=== PATIENT | female | born 1960 | race Caucasian/White ===

== ENCOUNTER 2016-11-29 11:46 | Emergency (ER) | payer SELFPAY ==
[~2016-11-29] VITALS: Ht 165.1 cm; Wt 49.9 kg
--- NOTE | 2016-11-29 12:19 | PHYS DOC ---
Adult General Chief Complaint Chief Complaint: COUGH HPI HPI Patient is a 56 year old female presenting to the emergency department for evaluation of chest pain that has been going on for the past 3 days. She says that she woke up with the pain 3 days ago and that it has persisted. She says she feels a constant dull ache but the pain gets worse with exertion and she says she feels right-sided pressure and then whenever she coughs or takes a deep breath she feels sharp shooting pain coming from the back to the chest. She denies any nausea vomiting diaphoresis or shortness of breath. She says that she has a nonproductive cough. She reports having a stress test more than a year ago at [facility] that she thinks was negative but she denies ever having a heart catheterization or stents placed. She is in no obvious distress with normal vital signs. She has hypertension and she smokes cigarettes and says that she has a family history of heart disease. Review of Systems Review of Systems Constitutional: Denies fever or chills [] Eyes: Denies change in visual acuity, redness, or eye pain [] HENT: Denies nasal congestion or sore throat [] Respiratory: + cough. No shortness of breath [] Cardiovascular: + CP GI: Denies abdominal pain, nausea, vomiting, bloody stools or diarrhea [] : Denies dysuria or hematuria [] Musculoskeletal: Denies back pain or joint pain [] Integument: Denies rash or skin lesions [] Neurologic: Denies headache, focal weakness or sensory changes [] Current Medications Current Medications Current Medications Medications (Trade) Dose Ordered Sig/[facility] Start Time Stop Time Status Last Admin Dose Admin Albuterol/ Ipratropium (Duoneb) 3 ml 1X ONCE 11/29/16 12:45 11/29/16 12:46 DC 11/29/16 13:21 3 ML Aspirin (Ecotrin) 325 mg 1X ONCE 11/29/16 12:45 11/29/16 12:46 DC 11/29/16 13:40 325 MG Dexamethasone Sodium Phosphate (Decadron) 8 mg 1X ONCE 11/29/16 12:45 11/29/16 12:46 DC 11/29/16 13:38 8 MG Fentanyl Citrate (Fentanyl 2ml Vial) 75 mcg 1X ONCE 11/29/16 12:45 11/29/16 12:46 DC 11/29/16 13:40 75 MCG Allergies Allergies Allergies Coded Allergies Type Severity Reaction Last Updated Verified Sulfa (Sulfonamide Antibiotics) Allergy Intermediate Hives 11/29/16 Yes lisinopril Allergy Intermediate Swelling 11/29/16 Yes Physical Exam Physical Exam Constitutional: Well developed, well nourished, no acute distress, non-toxic appearance. [] HENT: Normocephalic, atraumatic, bilateral external ears normal, oropharynx moist, no oral exudates, nose normal. [] Eyes: PERRLA, EOMI, conjunctiva normal, no discharge. [] Neck: Normal range of motion, no tenderness, supple, no stridor. [] Cardiovascular:Heart rate regular rhythm, no murmur [] Lungs & Thorax: Bilateral breath sounds diminished with expiratory wheezing noted Abdomen: Bowel sounds normal, soft, no tenderness, no masses, no pulsatile masses. [] Skin: Warm, dry, no erythema, no rash. [] Back: No tenderness, no CVA tenderness. [] Extremities: No tenderness, no cyanosis, no clubbing, ROM intact, no edema. [] Neurologic: Alert and oriented X 3, normal motor function, normal sensory function, no focal deficits noted. [] Current Patient Data Vital Signs Vital Signs Date Time Temp Pulse Resp B/P Pulse Ox O2 Delivery O2 Flow Rate FiO2 11/29/16 14:05 Room Air 11/29/16 14:01 82 15 170/89 90 11/29/16 12:27 97.6 97.6 Lab Values Laboratory Tests Test 11/29/16 12:42 11/29/16 13:15 11/29/16 13:30 Urine Opiates Screen Neg (NEG) Urine Methadone Screen Neg (NEG) Urine Barbiturates Neg (NEG) Urine Phencyclidine Screen Neg (NEG) Urine Amphetamine/Methamphetamine Pos (NEG) Urine Benzodiazepines Screen Pos (NEG) Urine Cocaine Screen Neg (NEG) Urine Cannabinoids Screen Pos (NEG) Urine Ethyl Alcohol Neg (NEG) White Blood Count 10.8x10^3/uL (4.0-11.0) Red Blood Count 4.91x10^6/uL (3.50-5.40) Hemoglobin 15.9g/dL (12.0-15.5) H Hematocrit 46.2% (36.0-47.0) Mean Corpuscular Volume 94fL (79-100) Mean Corpuscular Hemoglobin 32pg (25-35) Mean Corpuscular Hemoglobin Concent 34g/dL (31-37) Red Cell Distribution Width 13.1% (11.5-14.5) Platelet Count 332x10^3/uL (140-400) Neutrophils (%) (Auto) 60% (31-73) Lymphocytes (%) (Auto) 28% (24-48) Monocytes (%) (Auto) 8% (0-9) Eosinophils (%) (Auto) 3% (0-3) Basophils (%) (Auto) 1% (0-3) Neutrophils # (Auto) 6.5x10^3uL (1.8-7.7) Lymphocytes # (Auto) 3.1x10^3/uL (1.0-4.8) Monocytes # (Auto) 0.9x10^3/uL (0.0-1.1) Eosinophils # (Auto) 0.3x10^3/uL (0.0-0.7) Basophils # (Auto) 0.1x10^3/uL (0.0-0.2) Sodium Level 137mmol/L (136-145) Potassium Level 4.0mmol/L (3.5-5.1) Chloride Level 105mmol/L (98-107) Carbon Dioxide Level 25mmol/L (21-32) Anion Gap 7 (6-14) Blood Urea Nitrogen 16mg/dL (7-20) Creatinine 1.1mg/dL (0.6-1.0) H Estimated GFR (Cockcroft-Gault) 51.2 BUN/Creatinine Ratio 15 (6-20) Glucose Level 107mg/dL (70-99) H Calcium Level 9.4mg/dL (8.5-10.1) Total Bilirubin 0.4mg/dL (0.2-1.0) Aspartate Amino Transferase (AST) 38U/L (15-37) H Alanine Aminotransferase (ALT) 56U/L (14-59) Alkaline Phosphatase 123U/L (46-116) H Troponin I Quantitative < 0.017ng/mL (0.000-0.055) ZL-Aop-D-Type Natriuretic Peptide 92pg/mL (0-124) Total Protein 7.4g/dL (6.4-8.2) Albumin 3.4g/dL (3.4-5.0) Albumin/Globulin Ratio 0.9 (1.0-1.7) L Lipase 458U/L (73-393) H Ethyl Alcohol Level < 10mg/dL (0-10) Laboratory Tests 11/29/16 13:15 Laboratory Tests 11/29/16 13:30 EKG EKG Normal sinus rhythm at 82 bpm with normal axis and no ST elevation or depression and normal T waves Radiology/Procedures Radiology/Procedures 2 view CXR: Clinical indications: Cough. Comparison: July 01, 2012. Findings: Hyperinflation is seen consistent with COPD. No acute lung infiltrate or pleural effusion or pulmonary edema or lung mass or pneumothorax is seen. The heart size, pulmonary vasculature, mediastinum and both radha are unremarkable. Old healed right rib cage fractures are seen. Impression: No acute radiographic abnormality is seen. COPD. DICTATED and SIGNED BY: MAURO RENTERIA MD DATE: 11/29/16 1313 Course & Med Decision Making Course & Med Decision Making Patient with some typical features for ACS and some atypical but given her age and risk factors she will get further workup. Patient's workup completely negative. I recommended patient be admitted to the hospital and she does have multiple risk factors with no recent cardiac risk stratification. Patient says that she is pain-free and her breathing is much better and she wants to go home. I told her the limitations of the studies I can do in the emergency department and she verbalizes understanding and accepted the risks of and disability by leaving against my advice. Patient was told to follow up with a tint layer as soon as possible not exert herself take an aspirin daily and come back to the emergency department sooner with any worsening pain short of breath or other general concerns. Patient verbalized understanding of the above instructions. Dragon Disclaimer Dragon Disclaimer This electronic medical record was generated, in whole or in part, using a voice recognition dictation system. Departure Departure Impression: Primary Impression: Chest pain Additional Impressions: Drug abuse COPD without exacerbation Disposition: HOME, SELF-CARE Condition: GOOD Referrals: SEJAL CARABALLO MD Patient Instructions: Chest Pain (Nonspecific) Additional Instructions: TAKE A 325MG DOSE ASPIRIN DAILY. DO NOT EXERT YOURSELF UNTIL CLEARED BY THE TAX MANAGER. TAKE 400MG OF IBUPROFEN EVERY 6 HOURS AND THE NORCO FOR BREAKTHROUGH PAIN. THANK YOU! Scripts Ondansetron (Zofran Odt)4 Mg Tab.rapdis1 Tab SL Q8HRS #10 TAB Prov:KINGSLEY QUINTERO DO 11/29/16 Hydrocodone/Apap 5-325 ([place] 5-325 Tablet)1 Each Tablet1 Tab PO PRN Q6HRS PRN PAIN #20 TAB Prov:KINGSLEY QUINTERO DO 11/29/16 Problem Qualifiers Primary Impression: Chest pain Chest pain type: unspecified Qualified Code: R07.9 - Chest pain, unspecified KINGSLEY QUINTERO DO Nov 29, 2016 12:19
[2016-11-29] MEDS ORDERED: fentaNYL PF VIAL 100 MCG/2 ML VIAL IV ONE (12:45)
[2016-11-29] MEDS ORDERED: DEXAMETHASONE SOD PHOS 20 MG/5 ML VIAL. IV ONE (12:45)
[2016-11-29] MEDS ORDERED: IPRATRPIUM/ALBUTEROL 0.5/2.5MG 3 ML NEBU. NEB ONE (12:45)
[2016-11-29] MEDS ORDERED: ASPIRIN ENTERIC COATED 325 MG TABLET.DR. PO ONE (12:45)
--- NOTE | 2016-11-29 12:49 | EKG ---
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
[2016-11-29 13:08] LABS: BARBITURATES NEG (NEG); BENZODIAZEPINES POS (NEG); CANNABINOIDS POS (NEG); COCAINE NEG (NEG); ETHANOL, URINE NEG (NEG); METHADONE NEG (NEG); OPIATES NEG (NEG); PHENCYCLIDINE NEG (NEG)
--- NOTE | 2016-11-29 13:19 | RAD ---
2 view CXR: Clinical indications: Cough. Comparison: July 01, 2012. Findings: Hyperinflation is seen consistent with COPD. No acute lung infiltrate or pleural effusion or pulmonary edema or lung mass or pneumothorax is seen. The heart size, pulmonary vasculature, mediastinum and both radha are unremarkable. Old healed right rib cage fractures are seen. Impression: No acute radiographic abnormality is seen. COPD.
[2016-11-29 13:30] LABS: BASO # 0.1 x10^3/uL (0.0-0.2); BASO % 1 % (0-3); EOS % 3 % (0-3); HEMATOCRIT 46.2 % (36.0-47.0); HEMOGLOBIN 15.9 g/dL (12.0-15.5); LYMPH # 3.1 x10^3/uL (1.0-4.8); LYMPH % 28 % (24-48); MEAN CORPUSCULAR HEMOGLOBIN 32 pg (25-35); MEAN CORPUSCULAR HGB CONC 34 g/dL (31-37); MEAN CORPUSCULAR VOLUME 94 fL (79-100); MONO % 8 % (0-9); NEUT % 60 % (31-73); PLATELET COUNT 332 x10^3/uL (140-400); RED BLOOD COUNT 4.91 x10^6/uL (3.50-5.40); RED CELL DISTRIBUTION WIDTH 13.1 % (11.5-14.5); WHITE BLOOD COUNT 10.8 x10^3/uL (4.0-11.0)
[2016-11-29 13:59] LABS: CALCIUM 9.4 mg/dL (8.5-10.1); CREATININE 1.1 mg/dL (0.6-1.0); GFR 51.2
[2016-11-29 14:00] LABS: ALBUMIN 3.4 g/dL (3.4-5.0); ALBUMIN/GLOBULIN RATIO 0.9 (1.0-1.7); TOTAL BILIRUBIN 0.4 mg/dL (0.2-1.0); TOTAL PROTEIN 7.4 g/dL (6.4-8.2)
[2016-11-29 14:01] VITALS: BP 170/89
[2016-11-29] MEDS ORDERED: HYDR-971 PO (14:16)
[2016-11-29] MEDS ORDERED: ONDA4TAB10 SL (14:16)
== END 2016-11-29 14:28 | disposition home or self-care (01) ==
LOC: ER 11:46
DX: J44.9 Chronic obstructive pulmonary disease, unspecified (principal); F19.10 Other psychoactive substance abuse, uncomplicated; F17.210 Nicotine dependence, cigarettes, uncomplicated; I10 Essential (primary) hypertension; Z88.8 Allergy status to other drugs, medicaments and biological substances; Z88.2 Allergy status to sulfonamides
CPT/HCPCS: 36415; 71020; 80053; 80305; 80320; 83690; 83880; 84484; 85027; 93005; 94250; 94640; 96374; 96375; 99285; J1100; J3010; J7620; G0480; G0481

== ENCOUNTER 2016-11-30 14:29 | Emergency (ER) | payer SELFPAY ==
[~2016-11-30 14:29] MED LIST: HYDR-971 PO; ONDA4TAB10 SL
[2016-11-30] MEDS ORDERED: ASPIRIN 325 MG TABLET PO ONE (15:15)
[2016-11-30] MEDS ORDERED: KETOROLAC TROMETHAMINE 30 MG/ML INJ. IV ONE (15:15)
--- NOTE | 2016-11-30 15:36 | PHYS DOC ---
Past Medical History Past Medical History: COPD, Hypertension, UTI Additional Past Medical Histor: KIDNEY DYSFUNCTION ("RIGHT KIDNEY DOES NOT WORK ") Past Surgical History: Cholecystectomy, Alcohol Use: Rarely Drug Use: Marijuana Adult General Chief Complaint Chief Complaint: CHEST PAIN HPI HPI Patient is a 56 year old female who presents for repeat evaluation for right sided shoulder and upper chest pain that is present for the past 4 days at the request of her PCP. States the only time her pain comes with his when she was asleep. She wakes and has no pain, but pain starts as soon as she begins her day and lasts the entirety of the day. Her symptoms are unchanging throughout the day. Pain is achy, moderate, improves with hydrocodone that was prescribed yesterday. She denies cough, dyspnea, diaphoresis, palpitations, exertional symptoms, orthopnea, hemoptysis, leg pain or swelling, rash, fever or chills, nausea or vomiting, abdominal pain, diarrhea, pain with eating. Review of Systems Review of Systems Constitutional: Denies fever or chills [] Eyes: Denies change in visual acuity, redness, or eye pain [] HENT: Denies nasal congestion or sore throat [] Respiratory: Denies cough or shortness of breath [] Cardiovascular: No additional information not addressed in HPI [] GI: Denies abdominal pain, nausea, vomiting, bloody stools or diarrhea [] : Denies dysuria or hematuria [] Musculoskeletal: Denies back pain or joint pain [] Integument: Denies rash or skin lesions [] Neurologic: Denies headache, focal weakness or sensory changes [] Endocrine: Denies polyuria or polydipsia [] Current Medications Current Medications Current Medications Medications (Trade) Dose Ordered Sig/[facility] Start Time Stop Time Status Last Admin Dose Admin Aspirin (Sanjuanita Aspirin) 325 mg 1X ONCE 11/30/16 15:15 11/30/16 15:16 DC 11/30/16 15:15 325 MG Ketorolac Tromethamine (Toradol) 15 mg 1X ONCE 11/30/16 15:15 11/30/16 15:16 DC 11/30/16 15:15 15 MG Allergies Allergies Allergies Coded Allergies Type Severity Reaction Last Updated Verified Sulfa (Sulfonamide Antibiotics) Allergy Intermediate Hives 11/29/16 Yes lisinopril Allergy Intermediate Swelling 4/30/17 Yes Physical Exam Physical Exam Constitutional: Well developed, well nourished, no acute distress, non-toxic appearance. [] HENT: Normocephalic, atraumatic, bilateral external ears normal, oropharynx moist, nose normal. [] Eyes: PERRLA, EOMI. [] Neck: Normal range of motion, supple. [] Cardiovascular:Heart rate regular rhythm [] Lungs & Thorax: Bilateral breath sounds clear to auscultation. No chest wall tenderness or rash [] Abdomen: Bowel sounds normal, soft, no tenderness. [] Skin: Warm, dry, no erythema, no rash. [] Back: No tenderness, no CVA tenderness. [] Extremities: No tenderness, ROM intact, no edema. [] Neurologic: Alert and oriented X 3, normal motor function, normal sensory function, no focal deficits noted. [] Psychologic: Affect normal, judgement normal, mood normal. [] Current Patient Data Vital Signs Vital Signs Date Time Temp Pulse Resp B/P Pulse Ox O2 Delivery O2 Flow Rate FiO2 11/30/16 15:28 98.8 91 16 142/80 100 Room Air 98.8 Lab Values Laboratory Tests Test 11/30/16 15:40 White Blood Count 15.5x10^3/uL (4.0-11.0) H Red Blood Count 4.38x10^6/uL (3.50-5.40) Hemoglobin 13.8g/dL (12.0-15.5) Hematocrit 40.6% (36.0-47.0) Mean Corpuscular Volume 93fL (79-100) Mean Corpuscular Hemoglobin 32pg (25-35) Mean Corpuscular Hemoglobin Concent 34g/dL (31-37) Red Cell Distribution Width 13.1% (11.5-14.5) Platelet Count 265x10^3/uL (140-400) Neutrophils (%) (Auto) 73% (31-73) Lymphocytes (%) (Auto) 21% (24-48) L Monocytes (%) (Auto) 5% (0-9) Eosinophils (%) (Auto) 0% (0-3) Basophils (%) (Auto) 1% (0-3) Neutrophils # (Auto) 11.4x10^3uL (1.8-7.7) H Lymphocytes # (Auto) 3.3x10^3/uL (1.0-4.8) Monocytes # (Auto) 0.8x10^3/uL (0.0-1.1) Eosinophils # (Auto) 0.0x10^3/uL (0.0-0.7) Basophils # (Auto) 0.1x10^3/uL (0.0-0.2) Sodium Level 137mmol/L (136-145) Potassium Level 3.8mmol/L (3.5-5.1) Chloride Level 104mmol/L (98-107) Carbon Dioxide Level 26mmol/L (21-32) Anion Gap 7 (6-14) Blood Urea Nitrogen 19mg/dL (7-20) Creatinine 0.9mg/dL (0.6-1.0) Estimated GFR (Cockcroft-Gault) 64.5 Glucose Level 160mg/dL (70-99) H Calcium Level 9.1mg/dL (8.5-10.1) Total Bilirubin 0.3mg/dL (0.2-1.0) Direct Bilirubin 0.1mg/dL (0.0-0.2) Aspartate Amino Transferase (AST) 26U/L (15-37) Alanine Aminotransferase (ALT) 47U/L (14-59) Alkaline Phosphatase 113U/L (46-116) Troponin I Quantitative < 0.017ng/mL (0.000-0.055) Total Protein 6.5g/dL (6.4-8.2) Albumin 3.2g/dL (3.4-5.0) L Lipase 160U/L (73-393) Laboratory Tests 11/30/16 15:40 Laboratory Tests 11/30/16 15:40 EKG EKG EKG as interpreted by me as normal sinus rhythm, rate 93, no ST-T changes, normal intervals, no ectopy Radiology/Procedures Radiology/Procedures Chest x-ray reviewed from yesterday's encounter showing no acute cardiopulmonary disease process Course & Med Decision Making Course & Med Decision Making Pertinent Labs and Imaging studies reviewed. (See chart for details) Workup is unremarkable. Anticipatory guidance given for possible shingles symptoms pre-eruption. Discussed she should follow-up with cardiology clinic and her primary care doctor within one week. Return precautions given. She understands and agrees with plan. Dragon Disclaimer Dragon Disclaimer This electronic medical record was generated, in whole or in part, using a voice recognition dictation system. Departure Departure Impression: Primary Impression: Chest pain Disposition: 01 HOME, SELF-CARE Condition: STABLE Referrals: SEJAL CARABALLO MD Patient Instructions: Chest Pain (Nonspecific), [id number] Additional Instructions: Follow up with your primary care doctor and cardiology clinic. Please call for appointment. Return for any concerns. Problem Qualifiers Primary Impression: Chest pain Chest pain type: unspecified Qualified Code: R07.9 - Chest pain, unspecified Omi HUNG MD November 30, 2016 15:36
[2016-11-30 15:47] LABS: BASO # 0.1 x10^3/uL (0.0-0.2); BASO % 1 % (0-3); EOS % 0 % (0-3); HEMATOCRIT 40.6 % (36.0-47.0); HEMOGLOBIN 13.8 g/dL (12.0-15.5); LYMPH # 3.3 x10^3/uL (1.0-4.8); LYMPH % 21 % (24-48); MEAN CORPUSCULAR HEMOGLOBIN 32 pg (25-35); MEAN CORPUSCULAR HGB CONC 34 g/dL (31-37); MEAN CORPUSCULAR VOLUME 93 fL (79-100); MONO % 5 % (0-9); NEUT % 73 % (31-73); PLATELET COUNT 265 x10^3/uL (140-400); RED BLOOD COUNT 4.38 x10^6/uL (3.50-5.40); RED CELL DISTRIBUTION WIDTH 13.1 % (11.5-14.5); WHITE BLOOD COUNT 15.5 x10^3/uL (4.0-11.0)
--- NOTE | 2016-11-30 15:57 | EKG ---
[facility] [address] [place] [address] Test Date: 2016-11-30 Test Time: 14:45:52 Pat Name: FRANKLYN SUTTON Department: Room: Gender: F Power Press Operator: : 1960 Requested By: Omi HUNG Order Number: [id number] Reading MD: Alexa Gaspar Measurements Intervals [place] Rate: 93 P: 75 PA: 156 QRS: 75 QRSD: 78 T: 72 QT: 326 QTc: 408 Interpretive Statements SINUS RHYTHM T ABNORMALITY IN ANTERIOR LEADS ABNORMAL ECG RI6.01 No previous ECG available for comparison Electronically Signed On 11-30-2016 21:17:49 CDT by Alexa Gaspar
[2016-11-30 16:19] LABS: CALCIUM 9.1 mg/dL (8.5-10.1); CREATININE 0.9 mg/dL (0.6-1.0); GFR 64.5; POTASSIUM 3.8 mmol/L (3.5-5.1)
[2016-11-30 16:21] LABS: ALBUMIN 3.2 g/dL (3.4-5.0); DIRECT BILIRUBIN 0.1 mg/dL (0.0-0.2); TOTAL BILIRUBIN 0.3 mg/dL (0.2-1.0); TOTAL PROTEIN 6.5 g/dL (6.4-8.2)
[2016-11-30 17:05] VITALS: BP 156/76
== END 2016-11-30 17:17 | disposition home or self-care (01) ==
LOC: ER 14:29
DX: R07.89 Other chest pain (principal); M25.511 Pain in right shoulder; I10 Essential (primary) hypertension; J45.909 Unspecified asthma, uncomplicated; F12.10 Cannabis abuse, uncomplicated; Z90.49 Acquired absence of other specified parts of digestive tract; Z98.890 Other specified postprocedural states; Z87.440 Personal history of urinary (tract) infections; Z88.8 Allergy status to other drugs, medicaments and biological substances; Z88.2 Allergy status to sulfonamides
CPT/HCPCS: 36415; 80048; 80076; 83690; 84484; 85027; 93005; 96374; 99285; J1885